=== PATIENT | male | born 2000 | race Caucasian/White ===

== ENCOUNTER 2024-02-27 13:31 | Emergency (ER) | payer SELFPAY ==
[2024-02-27 14:47] VITALS: BP 135/83
[2024-02-27 14:49] VITALS: BP 135/83
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
== END 2024-02-27 14:49 | disposition home or self-care (01) ==
LOC: EMR 13:31
PROVIDERS: EMERGENCY PHYSICIAN Student in an Organized Health Care Education/Training Program
DX: S01.81XA Laceration without foreign body of other part of head, initial encounter (principal); W22.8XXA Striking against or struck by other objects, initial encounter; Y99.0 Civilian activity done for income or pay
CPT/HCPCS: 12011; 99282